=== PATIENT | female | born 1955 | race Caucasian/White ===

== ENCOUNTER 2017-07-06 11:35 | Emergency (ER) | payer OTHER ==
[~2017-07-06] VITALS: Ht 165.1 cm; Wt 75.9 kg
[~2017-07-06 11:35] MED LIST: DULOXETINE HCL30 MG PO; LAMOTRIGINE100 MG PO; NORCO 5/3251 TABLET PO; QUETIAPINE FUMA50 MG PO; SIMVASTATIN20 MG PO; SYNTHROID125 MCG PO; TYLENOL WITH C1 EACH PO
[2017-07-06] MEDS ORDERED: PERCOCET 5/31 TABLET PO (13:34)
[2017-07-06] MEDS ORDERED: FLEXERIL10 MG PO (13:34)
[2017-07-06] MEDS ORDERED: NAPROSYN500 MG PO (13:34)
[2017-07-06 14:10] VITALS: BP 146/85
== END 2017-07-06 14:11 | disposition home or self-care (01) ==
LOC: EME 11:35
DX: S20.211A Contusion of right front wall of thorax, initial encounter (principal); W18.2XXA Fall in (into) shower or empty bathtub, initial encounter; Y93.E1 Activity, personal bathing and showering; F17.200 Nicotine dependence, unspecified, uncomplicated; E78.5 Hyperlipidemia, unspecified; E07.9 Disorder of thyroid, unspecified
CPT/HCPCS: 71101; 99281; 99284; J1885

== ENCOUNTER 2017-09-04 11:56 | Emergency (ER) | payer OTHER ==
[~2017-09-04] VITALS: Ht 165.1 cm; Wt 73.6 kg
[~2017-09-04 11:56] MED LIST changes: +FLEXERIL10 MG PO; +NAPROSYN500 MG PO; +PERCOCET 5/31 TABLET PO
[2017-09-04] MEDS ORDERED: ULTRAM50 MG PO (16:13)
[2017-09-04 16:26] VITALS: BP 148/52
== END 2017-09-04 16:27 | disposition home or self-care (01) ==
LOC: EME 11:56
DX: S20.212A Contusion of left front wall of thorax, initial encounter (principal); W01.198A Fall on same level from slipping, tripping and stumbling with subsequent striking against other object, initial encounter; Y93.E1 Activity, personal bathing and showering; Y92.002 Bathroom of unspecified non-institutional (private) residence as the place of occurrence of the external cause; F17.200 Nicotine dependence, unspecified, uncomplicated
CPT/HCPCS: 71046; 71101; 99281; 99283